=== PATIENT | male | born 2000 | race African-American/Black ===

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

== ENCOUNTER 2022-08-20 15:22 | Emergency (ER) | payer MEDICAID ==
[~2022-08-20] VITALS: Ht 180.3 cm; Wt 90.0 kg
[2022-08-20 15:32] VITALS: BP 155/90
== END 2022-08-20 21:07 | disposition left against medical advice (07) ==
LOC: ER 15:22
DX: N34.2 Other urethritis (principal)
CPT/HCPCS: 99281